=== PATIENT | female | born 1940 | race Caucasian/White ===

== ENCOUNTER → 2017-03-27 | Day surgery (SDC) | payer OTHER ==
--- NOTE | 2017-03-13 13:19 | HISTORY & PHYSICAL EXAMINATION ---
DATE OF ADMISSION: 03/27/2017 CHIEF COMPLAINT: Pessary fixed to the upper vaginal wall. HISTORY OF PRESENT ILLNESS: The patient is a 76-year-old 2, para 2. She had a ARLEY-BSO in 2009 for prolapse. Subsequently she had prolapse of the bladder and she was fitted with a pessary. She had difficulty getting the pessary in and out so she just left the pessary in. By the time I saw her for her first visit she feels it had been in for over 3 years. I attempted to take it out and found out that it had grown in part of the vagina up by the cuff. There had been a hole in the diaphragm of the pessary and the anterior vaginal wall and the posterior vaginal wall had grown together in a band that was at least 1/3 of an inch thick. She is presently being admitted for outpatient surgery for lysis of this band and removal of her pessary. PAST MEDICAL HISTORY: Has 2 children in good health. She IS ALLERGIC TO SULFA, ATORVASTATIN. MEDICAL PROBLEMS: She has diabetes which was recently diagnosed and she has elevated cholesterol, which she has had for years. PAST SURGICAL HISTORY: She had ARLEY-BSO 2009 for prolapse. She had an appendectomy. She had a lump removed in the left breast which was shown to be benign. SOCIAL HISTORY: No smoking. No excessive alcohol intake. 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 FAMILY HISTORY: Mom 94. Complications of dementia and stroke. Father at age 73 auto accident. She has 1 brother had thyroid cancer. REVIEW OF SYSTEMS: HEAD: No symptoms of frequent or severe headaches. EYES: No symptoms of blurred vision or double vision. EARS: No symptoms of frequent ear infections, difficulty hearing. NOSE: No symptoms of frequent nosebleeds, difficulty breathing through her nose. THROAT: No symptoms of frequent or severe sore throat, difficulty swallowing. RESPIRATORY SYSTEM: No history of asthma, chest pain, shortness of breath. PHYSICAL EXAMINATION: GENERAL: Well-developed, well-nourished white female, alert, oriented x3 and cooperative in no acute distress, appears stated age. EYES: Conjunctivae are pink. Sclerae white. No evidence of jaundice. EARS: Had normal light reflex bilaterally. NOSE: Had normal mucosa. Septum is midline. There were no polyps. THROAT: Had no erythema, evidence of infection. Teeth are in good state of repair. HEAD: Was normocephalic, normal distribution of hair. NECK: Supple. Trachea midline. Thyroid is not enlarged. There is no adenopathy appreciated. Both carotids are of good intensity. CHEST: Clear to auscultation and percussion. No wheezes, rales or rhonchi appreciated. HEART: Regular rhythm. S1 and S2 are normal. Breast exam was normal. ABDOMEN: Soft and nontender. PELVIC EXAMINATION: Revealed a flat pessary ring type pessary holding up the bladder with the top of the pessary close to the vaginal cuff grown fast into the vagina with the anterior and posterior wall vaginal robison having grown together within the pessary ring. MUSCULOSKELETAL EXAMINATION: Revealed no calf tenderness. IMPRESSIONS OF THIS CASE: Status post breast biopsy, status post appendectomy, status post ARLEY-BSO for prolapse, diabetes, elevated cholesterol and bladder pessary grown fast to the upper vaginal cuff. MTDD
[2017-03-13 15:01] LABS: MEAN CORPUSCULAR HGB CONC 33.3 g/dl (32-36)
[2017-03-13 16:14] LABS: BASO % 0.5 %; BASO ABS # 0.04 K/uL (0-0.2); COMPLETE YES; ECHINOCYTES 1+; EOS % 6.9 %; HEMATOCRIT 40.6 % (37-47); IG% 0.1 %; LYMPH ABS # 2.39 K/uL (1.2-3.4); MEAN CELL VOLUME 93.5 fL (80-100); MEAN CORPUSCULAR HEMOGLOBIN 31.1 pg (25-34); MEAN PLATELET VOLUME 11.9 fL (7.4-10.4); MONO % 9.7 %; NEUT % 51.8 %; PLATELET COUNT 189 K/uL (130-400); RED BLOOD COUNT 4.34 M/uL (4.2-5.4)
[2017-03-17 11:13] VITALS: Ht 174 cm; Wt 65.9 kg
[~2017-03-27] VITALS: Ht 174 cm; Wt 65.9 kg
[~2017-03-27] MED LIST: CALC200T PO; CANA1TAB PO; CHOL1000 PO; COEN100C7 PO; CYAN100020 PO; DEXAMETHASONE SOD INJ 4 MG/ML VIAL ONE; FENTANYL CITRATE INJ 50 MCG/1 ML 2 ML VIAL ONE; HYDROCODONE/ACETAMOPHEN 5/325MG TAB PO PRN; IBUPROFEN 600 MG TAB PO PRN; KETOROLAC TROMETHAMINE 15 MG/ML VIAL IV. PRN; KETOROLAC TROMETHAMINE 30 MG/ML VIAL ONE; LACTATED RINGER'S 1000ML 1,000 ML IV SCH; LIDOCAINE HCL 2% 2 ML VIAL (20MG/ML) ONE; LIDOCAINE/EPINEPHRINE 1% INJ 50 ML VIAL ONE; ONDANSETRON INJ 2 MG/ML 2 ML VIAL IV PRN; ONDANSETRON INJ 2 MG/ML 2 ML VIAL ONE; OXYCODONE/ACETAMINOPHEN 5-325 TAB PO PRN; PROPOFOL IV EMULSION 10 MG/ML 20 ML VIAL IV ONE; SERT25TA PO; SILVER NITR/POTASSIUM NITRATE 10 APPLICATOR PACK ONE; SIMV20TA2 PO; SODIUM CHLORIDE 0.9% 1000ML 1,000 ML IV SCH
--- NOTE | 2017-03-27 12:13 | History & Physical Bridge Note ---
H&P Re-Evaluation Bridge Note: I have examined the patient, reviewed the History & Physical and in the interval since the performance of the History & Physical I have noted the following changes of clinical significance: No changes noted
--- NOTE | 2017-03-27 12:50 | [facility] Post Operative Brief Note ---
Immediate Operative Summary Operative Date Mar 27, 2017. Pre-Operative Diagnosis Pessary Adhered to Vaginal Wall Post-Operative Diagnosis same Procedure(s) Performed Vaginal Wall Foreign Body (Pessary) Removal Under Anesthesia Surgeon Dr. Mariella Soto Store Administrator Surgeon(s) 0 Estimated Blood Loss 5cc Findings vaginal pessary grown fixed to anterior and posterior vagina Specimens The removed Pessary was washed and sent with the patient. Complication(s) None Disposition Recovery Room / PACU
--- NOTE | 2017-03-27 12:56 | Discharge Instructions ---
Discharge Instructions Date of Service Mar 27, 2017. Visit Reason for Visit: Pessary Adhered To Vaginal Wall Discharge Discharge Diagnosis / Problem: pessary grown fixed to the upper vagina Discharge Goals Goal(s): Improve function Activity Recommendations Activity Limitations: as noted below ACTIVITY RECOMMENDATIONS: * Avoid tampons, douching, hot tubs, pools, and intercourse until bleeding has stopped. * May shower as usual. * No strenuous activity for 24-48 hours. After 24-48 hours, you may do anything you feel like doing (driving and sports are okay). SPECIAL CARE INSTRUCTIONS: Special Diet: * Mild nausea may occur in the immediate post-operative period. * Take clear liquids such as tea, cola or bouillon until all nausea has subsided; you may then resume your normal diet. Special Care: * Light bleeding and vaginal spotting can last from a few days to 3-4 weeks. Call your doctor if bleeding becomes heavier than the heaviest part of your period. * Check your temperature twice a day for one week. If it goes above 100.4 degrees Fahrenheit (38.0 Celsius), notify your doctor. * Call your doctor's office for an appointment for 6 weeks after your surgery. FOLLOW-UP VISIT: Call your doctor's office for an appointment for 6 weeks after your surgery. Anesthesia . Post Anesthesia Instructions: If you have had General Anesthesia or IV Sedation: * Do not drive today. * Resume driving when surgeon permits. * Do not make important decisions or sign legal documents today. * Call surgeon for: 1. Temperature elevations greater than 101 degrees F. 2. Uncontrollable pain. 3. Excessive bleeding. 4. Persistent nausea and vomiting. 5. Medication intolerance (nausea, vomiting or rash). * For nausea and vomiting use only clear liquids such as: tea, soda, bouillon until nausea subsides, then gradually increase diet as tolerated. * If you have any concerns or questions, call your surgeon's office. If physician is unavailable and it is an emergency, call 911 or go to the nearest emergency room. . Instructions / Follow-Up Instructions / Follow-Up ACTIVITY RECOMMENDATIONS: * Avoid tampons, douching, hot tubs, pools, and intercourse until bleeding has stopped. * May shower as usual. * No strenuous activity for 24-48 hours. After 24-48 hours, you may do anything you feel like doing (driving and sports are okay). SPECIAL CARE INSTRUCTIONS: Special Diet: * Mild nausea may occur in the immediate post-operative period. * Take clear liquids such as tea, cola or bouillon until all nausea has subsided; you may then resume your normal diet. Special Care: * Light bleeding and vaginal spotting can last from a few days to 3-4 weeks. Call your doctor if bleeding becomes heavier than the heaviest part of your period. * Check your temperature twice a day for one week. If it goes above 100.4 degrees Fahrenheit (38.0 Celsius), notify your doctor. * Call your doctor's office for an appointment for 6 weeks after your surgery. FOLLOW-UP VISIT: Call your doctor's office for an appointment for 6 weeks after your surgery. Diet Recommendations Recommended Home Diet: resume previous diet Procedures Procedures Performed: Vaginal Wall Foreign Body (Pessary) Removal Under Anesthesia Pending Studies Studies pending at discharge: no Medical Emergencies . Who to Call and When: Medical Emergencies: If at any time you feel your situation is an emergency, please call 911 immediately. . Non-Emergent Contact Non-Emergency issues call your: Electrical Products Engineer Call Non-Emergent contact if: temperature is above 100.5 . . "Provider Documentation" section prepared by Joe Soto. .
--- NOTE | 2017-03-27 13:42 | OPERATIVE REPORT ---
DATE OF OPERATION: 03/27/2017 PROCEDURE: Excision of a vaginal pessary. PREOPERATIVE DIAGNOSIS: Vaginal pessary grown into the upper vagina. POSTOPERATIVE DIAGNOSIS: Same. SURGEON: Dr. Soto. ESTIMATED BLOOD LOSS: 5 mL. ANESTHESIA: General and also local. OPERATIVE FINDINGS AND PROCEDURE: The patient was brought to the OR table, correctly identified by armband and conversation. General anesthesia was administered. Perineum and vagina were painted with Betadine paint along with a pessary, which has grown fixed to the upper vagina. After prepping and draping in usual sterile fashion, we started to pull the pessary partially out the vaginal introitus and there was a drainage hole in the pessary and the anterior and posterior vagina had grown to each other in a band, thus preventing removal of the pessary. The base of this band on the top and bottom was infiltrated with local with epinephrine. Then, I used Metzenbaum scissors to cut the scar line, which was visible between the anterior and posterior vagina. Once I cut this, freed the pessary, removed the pessary, I then turned my attention to the incisional scars on the anterior and posterior vagina. They were bleeding on the edges. So, I used a 3-0 chromic in a running fashion to approximate the raw vaginal edges to each other on the posterior vagina and also the anterior vagina, thus approximating these vaginal edges and creating good hemostasis. Following this, I also did a careful rectal examination to make sure there were no stitches through the rectum, although all the bites anterior and posterior were relatively shallow. The patient tolerated the procedure well and left the OR in good condition. I attest to the content of the Intraoperative Record and any orders documented therein. Any exception s are noted below.
[2017-03-27 13:58] VITALS: BP 149/83; PULSE 66; O2SAT 97
--- NOTE | 2017-03-27 14:13 | Anesthesiology Progress Note ---
Anesthesia Post Op Note Date & Time Mar 27, 2017 at 14:13 Vital Signs Pain Intensity: 0 Vital Signs Past 12 Hours Date Time Temp Pulse Resp B/P (MAP) Pulse Ox O2 Delivery O2 Flow Rate FiO2 03/27/17 13:58 66 16 149/83 (105) 97 Room Air 03/27/17 13:30 67 16 156/78 (104) 100 Room Air 03/27/17 13:28 63 97 03/27/17 13:28 63 03/27/17 13:26 132/76 03/27/17 13:23 64 15 03/27/17 13:23 63 15 97 03/27/17 13:22 64 15 03/27/17 13:22 64 15 96 03/27/17 13:21 36.4 63 16 131/69 97 Room Air 03/27/17 13:21 131/69 03/27/17 13:17 66 16 98 03/27/17 13:17 66 16 03/27/17 13:16 64 19 130/83 98 03/27/17 13:16 57 19 03/27/17 13:11 60 12 03/27/17 13:11 60 12 129/73 100 03/27/17 13:06 62 12 119/66 100 03/27/17 13:06 62 12 03/27/17 13:01 65 21 117/71 100 03/27/17 13:01 65 21 03/27/17 12:56 66 15 03/27/17 12:56 67 15 110/63 100 03/27/17 12:51 69 13 109/62 98 03/27/17 12:51 69 13 03/27/17 12:47 110/61 03/27/17 12:46 36.2 74 12 110/61 96 Nasal Cannula 3 03/27/17 11:06 36.6 68 16 139/83 (101) 98 Room Air Notes Mental Status: alert / awake / arousable, participated in evaluation Pt Amnestic to Procedure: Yes Nausea / Vomiting: adequately controlled Pain: adequately controlled Airway Patency, RR, SpO2: stable & adequate BP & HR: stable & adequate Hydration State: stable & adequate Anesthetic Complications: no major complications apparent
== END | disposition home or self-care (01) ==
LOC: X.SURG 10:38
PROVIDERS: ATTEND Obstetrics & Gynecology
DX: T83.89XA Other specified complication of genitourinary prosthetic devices, implants and grafts, initial encounter (principal); Y83.1 Surgical operation with implant of artificial internal device as the cause of abnormal reaction of the patient, or of later complication, without mention of misadventure at the time of the procedure; E11.9 Type 2 diabetes mellitus without complications; Z90.710 Acquired absence of both cervix and uterus; Z90.722 Acquired absence of ovaries, bilateral; Z90.79 Acquired absence of other genital organ(s); Z90.49 Acquired absence of other specified parts of digestive tract; Z82.3 Family history of stroke